=== PATIENT | female | born 1985 | race Two or more races ===

== ENCOUNTER 2017-06-02 08:18 | Emergency (ER) | payer BC ==
[~2017-06-02] VITALS: Ht 149.9 cm; Wt 59.0 kg
[2017-06-02] MEDS ORDERED: DICLOFENAC SOD100 MG PO (08:32)
[2017-06-02 08:35] VITALS: BP 108/73
[2017-06-02 09:15] VITALS: BP 103/73
--- NOTE | 2017-06-02 09:36 | Emergency Room Report ---
History of Present Illness General Chief Complaint: General Complaint Source: Patient Present Illness HPI 31-year-old female presents ED her evaluation. Stating that yesterday she noticed some right-sided facial numbness and feels that her face is "going down ". Denies any blurry vision. Denies any arm or leg weakness. Denies any slurred speech. Denies any history of hypertension or stroke however patient states that she does have a significant family history of family members with strokes. Denies chest pain shortness of breath. Denies drug use. No other aggravating relieving factors. Denies any other associated symptoms Allergies: Coded Allergies: No Known Allergies (Unverified , 06/02/17) Patient History Past Medical History: none Past Surgical History: none Pertinent Family History: none Social History: Denies: smoking, alcohol use, drug use Last Menstrual Period: 3 days ago Now: No Immunizations: UTD Reviewed Nursing Documentation: PMH: Agreed, PSxH: Agreed Nursing Documentation-PMH Past Medical History: No Stated History Review of Systems All Other Systems: negative except mentioned in HPI Physical Exam Vital Signs Date Time Temp Pulse Resp B/P (MAP) Pulse Ox O2 Delivery O2 Flow Rate FiO2 06/02/17 08:24 97.7 92 14 108/73 99 Room Air Sp02 EP Interpretation: reviewed, normal General Appearance: no apparent distress, alert, GCS 15, non-toxic Head: normocephalic, atraumatic Eyes: bilateral eye normal inspection, bilateral eye PERRL ENT: hearing grossly normal, normal pharynx, no angioedema, normal voice Neck: full range of motion, supple/symm/no masses Respiratory: chest non-tender, lungs clear, normal breath sounds, speaking full sentences Cardiovascular #1: regular rate, rhythm, no edema Cardiovascular #2: 2+ carotid (R), 2+ carotid (L), 2+ radial (R), 2+ radial (L) , 2+ dorsalis pedis (R), 2+ dorsalis pedis (L) Gastrointestinal: normal bowel sounds, non tender, soft, non-distended, no guarding, no rebound Rectal: deferred Genitourinary: normal inspection, no CVA tenderness Musculoskeletal: back normal, gait/station normal, normal range of motion, non- tender Neurologic: alert, oriented x3, responsive, motor strength/tone normal, sensory intact, cerebellar normal, normal gait, speech normal Psychiatric: judgement/insight normal, memory normal, mood/affect normal, no suicidal/homicidal ideation Reflexes: 3+ bicep (R), 3+ bicep (L), 3+ tricep (R), 3+ tricep (L), 3+ knee (R) , 3+ knee (L) Skin: normal color, no rash, warm/dry, well hydrated Lymphatic: no adenopathy Medical Decision Making Diagnostic Impression: Primary Impression: Facial numbness ER Course Hospital Course 31-year-old female presents ED complaining of facial droop and numbness times one day Differential diagnoses include: headache, CVA, bells palsy Clinical course Patient placed on stretcher. After initial history, physical exam reveals a female in no acute distress. On exam cranial nerves II through XII intact. There is no slurred speech. No facial droop. Sensations equal bilaterally. No evidence of Aparicio's palsy i.e. no difficulty raising eyebrows closing the eye. Physical exam essentially unremarkable. No focal neurological deficits. My suspicion for CVA or Aparicio's palsy is low Discussed the options with the patient; I did offer the option of CT scan of the head given the family history. Patient initially agreed to do CT scan but then later declined. States that she wishes to followup with her PMD Given negative physical exam I agree the patient can be discharged however I do encourage patient to return to ED if symptoms do recur or worsen Diagnosis - facial numbness Stable and discharged to home. Followup with PMD. Return to ED if symptoms recur or worsen Last Vital Signs Date Time Temp Pulse Resp B/P (MAP) Pulse Ox O2 Delivery O2 Flow Rate FiO2 06/02/17 09:15 77 16 103/73 99 Room Air 06/02/17 08:35 97.7 Status: improved Disposition: HOME, SELF-CARE Condition: Stable Patient Instructions: Stroke Prevention, [id number], Aparciio Palsy BRANDON ZUNIGA M.D. Jun 02, 2017 09:36
== END 2017-06-02 09:19 | disposition home or self-care (01) ==
LOC: EMR 08:55
DX: R20.0 Anesthesia of skin (principal); R29.810 Facial weakness
CPT/HCPCS: 99282